=== PATIENT | male | born 1935 | race Caucasian/White ===

== ENCOUNTER 2021-07-14 11:33 | Emergency (ER) | payer OTHER, MEDICARE ==
[2021-07-14] MEDS ORDERED: Albuterol 200 PUFF (6.7GM INHALER) ONE (12:27)
== END 2021-07-14 12:46 | disposition home or self-care (01) ==
LOC: ERS 11:33
DX: J20.9 Acute bronchitis, unspecified (principal); D64.9 Anemia, unspecified; I10 Essential (primary) hypertension; F17.210 Nicotine dependence, cigarettes, uncomplicated

== ENCOUNTER 2021-08-03 16:55 | Emergency (ER) | payer OTHER, MEDICARE ==
[2021-08-03] MEDS ORDERED: Dexamethasone 10 MG/ML VIAL ONE (23:01)
== END 2021-08-03 23:08 | disposition home or self-care (01) ==
LOC: ERS 16:55
DX: M50.30 Other cervical disc degeneration, unspecified cervical region (principal); D64.9 Anemia, unspecified; I10 Essential (primary) hypertension; Z87.891 Personal history of nicotine dependence; Z79.899 Other long term (current) drug therapy
CPT/HCPCS: 99283; J1100

== ENCOUNTER 2021-08-21 11:12 | Observation (INO) | payer MEDICARE, OTHER ==
[2021-08-21] MEDS ORDERED: Proparacaine 0.5% Opth 15 ML BOT ONE (13:20)
[2021-08-21 13:42] LABS: Hemoglobin 15.5 g/dL (14.0-18.0); Mean Corpuscular Volume 93.7 fL (78.0-98.0); RBC Distribution Width 18.2 % (11.5-14.5); Red Blood Cell (RBC) Count 5.33 mill/uL (4.70-6.10); White Blood Cell (WBC) Count 15.4 thou/uL (4.8-10.8)
[2021-08-21 13:43] LABS: #Basophils 0.1 thou/uL (0.0-0.2); #Eosinphils 0.1 thou/uL (0.0-0.7); #Lymphocytes 1.2 thou/uL (1.20-3.40); #Monocytes 1.5 thou/uL (0.11-0.59); #Neutrophils 12.6 thou/uL (1.40-6.50); %Basophils 0.4 % (0.0-1.0); %Eosinophils 0.6 % (0.0-10.0); %Lymphocytes 7.5 % (21.0-51.0); %Monocytes 9.4 % (0.0-10.0)
[2021-08-21 13:50] LABS: Anisocytosis SLIGHT = 6-15 cells (100X) (0-5/hpf); Large Platelets SLIGHT; MDiff Complete? YES; Mean Platelet Volume 9.8 fL (7.4-10.4); Ovalocytes SLIGHT = 2-5 cells (100X) (0-1/hpf); Platelet Count 84 thou/uL (130-400); Platelet Morphology Comment Appears Decreased; Polychromasia SLIGHT = 2-3 cells (100X) (0-2/hpf)
[2021-08-21 14:01] LABS: ALT (SGPT) 24 U/L (8-55); AST (SGOT) 24 U/L (5-34); Albumin 4.4 g/dL (3.4-4.8); Alkaline Phosphatase 107 U/L (40-110); Anion Gap 14 mmol/L (10-20); BUN (Urea Nitrogen) 17 mg/dL (8.4-25.7); Bilirubin, Total 0.7 mg/dL (0.2-1.2); Calc. Creatinine Clearance 0 mL/min (70-130); Calcium 9.3 mg/dL (7.8-10.44); Carbon Dioxide 28 mmol/L (23-31); Chloride 106 mmol/L (98-107); Globulin 3.2 g/dL (2.4-3.5); Glucose 98 mg/dL (83-110); Potassium 4.4 mmol/L (3.5-5.1); Protein, Total 7.6 g/dL (5.8-8.1); Sodium 144 mmol/L (136-145)
[2021-08-21 14:52] LABS: Thyroid Stimulating Hormone 0.7722 uIU/mL (0.35-4.94)
[2021-08-21] MEDS ORDERED: Aspirin Chewable 81 MG TAB ONE (15:19)
[2021-08-21 16:10] LABS: Free T4 (Free Thyroxine) 0.94 ng/dL (0.70-1.48)
[2021-08-21] MEDS ORDERED: hydrALAZINE 20 MG/ML VIAL SLOW IVP PRN (17:31)
[2021-08-21] MEDS ORDERED: Ondansetron ODT 4 MG TAB PO PRN (17:35)
[2021-08-21] MEDS ORDERED: Ondansetron PF 4 MG/2 ML Vial IVP PRN (17:35)
[2021-08-21] MEDS ORDERED: Calcium Carbonate 500 MG ChewTAB PO PRN (17:35)
[2021-08-21] MEDS ORDERED: Senokot S 8.6-50 MG TAB PO PRN (17:35)
[2021-08-21] MEDS ORDERED: Electrolyte Replacement Protocol 1 EACH FS SCH (17:45)
[2021-08-21] MEDS ORDERED: Electrolyte Replacement Protocol FS PRN (18:00)
[2021-08-21 18:17] VITALS: BMI 25.3
[2021-08-21 20:33] LABS: Bacteria/HPF None Seen HPF (None Seen); Bilirubin Negative (Negative); Blood, Urine Negative (Negative); Clarity Clear (Clear); Glucose, Urine (Dipstick) 70 mg/dL (Negative); Ketone, Urine Negative (Negative); Leukocyte Negative Leu/uL (Negative); Mucous/LPF Rare LPF (<2+); Nitrite Negative (Negative); Protein, Urine (Dipstick) 20 mg/dL (Neg-Trace); RBC/HPF 0-3 HPF (0-3); Specific Gravity, Urine 1.034 (1.002-1.036); Squamous Epithelial None Seen HPF (0-3); Urobilinogen Normal mg/dL (Less than 2); WBC/HPF 0-3 HPF (0-3); pH, Urine 5.5 (5.0-9.0)
[2021-08-21 20:34] LABS: Urine Culture Reflex No No
[2021-08-21] MEDS ORDERED: Atorvastatin Calcium 40 MG TAB PO SCH (21:00)
[2021-08-21] MEDS ORDERED: Famotidine 20 MG TAB PO SCH (21:00)
[2021-08-21] MEDS: Artificial Tear Sol 15 ML BOT EA EYE SCH (21:34)
[2021-08-21] MEDS: Acetaminophen 325 MG TAB PO PRN (21:34)
[2021-08-22] MEDS ORDERED: HYDROcodone/Acetaminophen 5/325 mg Tablet PO SCH (01:30)
[2021-08-22 05:09] LABS: PTT 34.5 sec (22.9-36.1); Prothrombin Time 13.6 sec (12.0-14.7)
[2021-08-22 05:26] LABS: Phosphorus 2.7 mg/dL (2.3-4.7)
[2021-08-22 05:29] LABS: Anion Gap 9 mmol/L (10-20); BUN (Urea Nitrogen) 19 mg/dL (8.4-25.7); Calc. Creatinine Clearance 67 mL/min (70-130); Calcium 8.4 mg/dL (7.8-10.44); Carbon Dioxide 27 mmol/L (23-31); Cardiac Risk 4.5 (Less than 4.5); Chloride 109 mmol/L (98-107); Cholesterol 179 mg/dl (< 200 Desired); Glucose 125 mg/dL (83-110); HDL Cholesterol 40 mg/dL (>60 Neg Risk); LDL Cholesterol, Calculated 104 mg/dL; Magnesium 1.9 mg/dL (1.6-2.6); Potassium 3.7 mmol/L (3.5-5.1); Sodium 141 mmol/L (136-145); Triglycerides 175 mg/dL (Less than 150)
[2021-08-22] MEDS: Acetaminophen 325 MG TAB PO PRN ×2 (06:07→13:18)
[2021-08-22 07:51] LABS: #Basophils 0.1 thou/uL (0.0-0.2); #Eosinphils 0.1 thou/uL (0.0-0.7); #Lymphocytes 1.2 thou/uL (1.20-3.40); #Monocytes 1.4 thou/uL (0.11-0.59); #Neutrophils 9.7 thou/uL (1.40-6.50); %Basophils 0.6 % (0.0-1.0); %Eosinophils 1.1 % (0.0-10.0); %Lymphocytes 9.5 % (21.0-51.0); %Monocytes 11.4 % (0.0-10.0); %Neutrophils 77.4 % (42.0-75.0); Band 6 % (5-11); Hemoglobin 13.7 g/dL (14.0-18.0); Large Platelets MODERATE; Lymphocytes 12 % (21-51); MDiff Complete? YES; Mean Corpuscular Hemoglobin 30.1 pg (27.0-31.0); Mean Corpuscular Volume 94.2 fL (78.0-98.0); Mean Platelet Volume 12.8 fL (7.4-10.4); Monocytes 8 % (0-10); Neutrophil 73 % (42-75); Platelet Count 71 thou/uL (130-400); Platelet Morphology Comment Appears Decreased; Polychromasia SLIGHT = 2-3 cells (100X) (0-2/hpf); RBC Distribution Width 18.3 % (11.5-14.5); Reactive Lymphocytes 1 % (0-10); Red Blood Cell (RBC) Count 4.56 mill/uL (4.70-6.10); White Blood Cell (WBC) Count 12.5 thou/uL (4.8-10.8)
[2021-08-22] MEDS ORDERED: Magnesium 2 GM/50 ML(in water) 2 GM in Premix Bag 1 BAG IVPB SCH (08:00)
[2021-08-22] MEDS ORDERED: Aspirin 81 mg Enteric Coated Tablet PO SCH (09:00)
[2021-08-22] MEDS: Polyethylene Glycol OPTH DROP 15 ML BOT EA EYE SCH ×2 (10:07→13:19)
[2021-08-22] MEDS: Artificial Tear Sol 15 ML BOT EA EYE SCH (10:09)
[2021-08-22 15:30] VITALS: BP 168/66; TEMP 97.7
== END 2021-08-22 16:15 | disposition home or self-care (01) ==
LOC: ERS 11:12 → ERHOLD 15:25 → NEURO 17:52
PROVIDERS: ADMIT Internal Medicine; ATTEND Emergency Medicine
DX: H53.2 Diplopia (principal); I12.9 Hypertensive chronic kidney disease with stage 1 through stage 4 chronic kidney disease, or unspecified chronic kidney disease; N18.2 Chronic kidney disease, stage 2 (mild); D69.6 Thrombocytopenia, unspecified; E78.5 Hyperlipidemia, unspecified; Z20.822 Contact with and (suspected) exposure to COVID-19; G30.9 Alzheimer's disease, unspecified; F02.80 Dementia in other diseases classified elsewhere, unspecified severity, without behavioral disturbance, psychotic disturbance, mood disturbance, and anxiety; D72.829 Elevated white blood cell count, unspecified; Z79.899 Other long term (current) drug therapy; Z86.718 Personal history of other venous thrombosis and embolism
CPT/HCPCS: 36415; 70450; 70551; 71045; 80048; 80053; 80061; 81001; 83735; 83880; 84100; 84439; 84443; 84484; 85025; 85610; 85652; 85730; 93005; 93306; 93880; 96374; G0378; J3475; U0003; U0005

== ENCOUNTER 2021-09-03 11:14 | Observation (INO) | payer MEDICARE, OTHER ==
[~2021-09-03 11:14] MED LIST: Iopamidol-370 76% 500 ML 1 ML ONE
[2021-09-03 11:50] LABS: #Basophils 0.1 thou/uL (0.0-0.2); #Eosinphils 0.1 thou/uL (0.0-0.7); #Lymphocytes 0.9 thou/uL (1.20-3.40); #Monocytes 1.1 thou/uL (0.11-0.59); #Neutrophils 6.3 thou/uL (1.40-6.50); %Basophils 0.6 % (0.0-1.0); %Eosinophils 1.5 % (0.0-10.0); %Lymphocytes 10.6 % (21.0-51.0); %Monocytes 13.4 % (0.0-10.0); %Neutrophils 73.9 % (42.0-75.0); Hemoglobin 13.1 g/dL (14.0-18.0); Mean Corpuscular HGB CONC 32.2 g/dL (32.0-36.0); Mean Corpuscular Volume 93.1 fL (78.0-98.0); Mean Platelet Volume 10.7 fL (7.4-10.4); Platelet Count 74 thou/uL (130-400); RBC Distribution Width 18.2 % (11.5-14.5); Red Blood Cell (RBC) Count 4.37 mill/uL (4.70-6.10); White Blood Cell (WBC) Count 8.5 thou/uL (4.8-10.8)
[2021-09-03 11:55] LABS: INR-International Normal Ratio 1.1; PTT 35.8 sec (22.9-36.1); Prothrombin Time 14.2 sec (12.0-14.7)
[2021-09-03 12:06] LABS: ALT (SGPT) 20 U/L (8-55); AST (SGOT) 17 U/L (5-34); Albumin 3.7 g/dL (3.4-4.8); Alkaline Phosphatase 87 U/L (40-110); Anion Gap 13 mmol/L (10-20); BUN (Urea Nitrogen) 15 mg/dL (8.4-25.7); Bilirubin, Total 0.6 mg/dL (0.2-1.2); Calc. Creatinine Clearance 0 mL/min (70-130); Calcium 8.8 mg/dL (7.8-10.44); Carbon Dioxide 25 mmol/L (23-31); Chloride 108 mmol/L (98-107); Globulin 2.4 g/dL (2.4-3.5); Glucose 158 mg/dL (83-110); Potassium 3.7 mmol/L (3.5-5.1); Protein, Total 6.1 g/dL (5.8-8.1); Sodium 142 mmol/L (136-145)
[2021-09-03 12:16] LABS: CKMB 4.3 ng/mL (0-6.6)
[2021-09-03 12:33] LABS: #Eosinphils 0.1 thou/uL (0.0-0.7); #Lymphocytes 0.9 thou/uL (1.20-3.40); #Neutrophils 6.5 thou/uL (1.40-6.50); %Basophils 0.3 % (0.0-1.0); %Eosinophils 1.4 % (0.0-10.0); %Lymphocytes 10.9 % (21.0-51.0); %Monocytes 11.7 % (0.0-10.0); %Neutrophils 75.7 % (42.0-75.0); Hemoglobin 12.5 g/dL (14.0-18.0); Mean Corpuscular HGB CONC 31.9 g/dL (32.0-36.0); Mean Corpuscular Hemoglobin 29.9 pg (27.0-31.0); Mean Corpuscular Volume 93.7 fL (78.0-98.0); Mean Platelet Volume 13.1 fL (7.4-10.4); Platelet Count 69 thou/uL (130-400); RBC Distribution Width 18.2 % (11.5-14.5); Red Blood Cell (RBC) Count 4.18 mill/uL (4.70-6.10); White Blood Cell (WBC) Count 8.6 thou/uL (4.8-10.8)
[2021-09-03] MEDS ORDERED: Aspirin Chewable 81 MG TAB ONE (13:02)
[2021-09-03 13:06] LABS: ALT (SGPT) 17 U/L (8-55); AST (SGOT) 18 U/L (5-34); Albumin 3.4 g/dL (3.4-4.8); Alkaline Phosphatase 83 U/L (40-110); Anion Gap 13 mmol/L (10-20); BUN (Urea Nitrogen) 14 mg/dL (8.4-25.7); Bilirubin, Total 0.6 mg/dL (0.2-1.2); Calc. Creatinine Clearance 0 mL/min (70-130); Calcium 8.4 mg/dL (7.8-10.44); Carbon Dioxide 26 mmol/L (23-31); Chloride 106 mmol/L (98-107); Globulin 2.3 g/dL (2.4-3.5); Glucose 157 mg/dL (83-110); Potassium 4.1 mmol/L (3.5-5.1); Protein, Total 5.7 g/dL (5.8-8.1); Sodium 141 mmol/L (136-145)
[2021-09-03] MEDS ORDERED: Bisacodyl 5 MG TAB PO PRN (14:25)
[2021-09-03] MEDS ORDERED: Ondansetron PF 4 MG/2 ML Vial IVP PRN (14:25)
[2021-09-03] MEDS ORDERED: Senokot S 8.6-50 MG TAB PO PRN (14:25)
[2021-09-03] MEDS ORDERED: Ondansetron ODT 4 MG TAB PO PRN (14:25)
[2021-09-03] MEDS ORDERED: Acetaminophen 325 MG TAB PO PRN (14:25)
[2021-09-03 16:50] LABS: Troponin I 0.027 ng/mL (< 0.028)
[2021-09-03 19:44] LABS: Troponin I 0.025 ng/mL (< 0.028)
[2021-09-03] MEDS ORDERED: Gabapentin 100 MG CAP PO SCH (21:00)
[2021-09-03] MEDS ORDERED: Atorvastatin Calcium 40 MG TAB PO SCH (21:00)
[2021-09-03 23:17] VITALS: BMI 23.0
[2021-09-03] MEDS ORDERED: Betamethasone 0.1% Cream 45 GM TUBE TOP SCH (23:30)
[2021-09-03] MEDS ORDERED: Thiamine 100 MG TAB PO SCH (23:30)
[2021-09-03] MEDS ORDERED: Amlodipine 10 MG TAB PO SCH (23:30)
[2021-09-03] MEDS ORDERED: Cyanocobalamin (Vitamin B-12) 1,000 MCG TAB PO SCH (23:30)
[2021-09-03] MEDS ORDERED: Donepezil HCl 10 MG TAB PO SCH (23:30)
[2021-09-03] MEDS ORDERED: Ferrous Sulfate 325 MG TAB PO SCH (23:30)
[2021-09-03] MEDS ORDERED: Folic Acid 1 MG TAB PO SCH (23:30)
[2021-09-03] MEDS ORDERED: Magnesium Oxide 400 MG TAB PO SCH (23:30)
[2021-09-03] MEDS ORDERED: Diclofenac 1% 100 GM GEL TP SCH (23:30)
[2021-09-03] MEDS ORDERED: Loratadine 10 MG TAB PO SCH (23:30)
[2021-09-04 05:24] LABS: #Basophils 0.1 thou/uL (0.0-0.2); #Eosinphils 0.3 thou/uL (0.0-0.7); #Lymphocytes 0.9 thou/uL (1.20-3.40); #Monocytes 1.1 thou/uL (0.11-0.59); #Neutrophils 6.3 thou/uL (1.40-6.50); %Basophils 0.7 % (0.0-1.0); %Eosinophils 3.5 % (0.0-10.0); %Lymphocytes 10.2 % (21.0-51.0); %Monocytes 12.8 % (0.0-10.0); %Neutrophils 72.7 % (42.0-75.0); Hemoglobin 12.8 g/dL (14.0-18.0); Mean Corpuscular HGB CONC 32.7 g/dL (32.0-36.0); Mean Corpuscular Hemoglobin 30.4 pg (27.0-31.0); Mean Corpuscular Volume 92.7 fL (78.0-98.0); Mean Platelet Volume 13.2 fL (7.4-10.4); Platelet Count 64 thou/uL (130-400); RBC Distribution Width 18.1 % (11.5-14.5); Red Blood Cell (RBC) Count 4.22 mill/uL (4.70-6.10); White Blood Cell (WBC) Count 8.7 thou/uL (4.8-10.8)
[2021-09-04 05:45] LABS: ALT (SGPT) 17 U/L (8-55); AST (SGOT) 15 U/L (5-34); Albumin 3.3 g/dL (3.4-4.8); Alkaline Phosphatase 75 U/L (40-110); Anion Gap 11 mmol/L (10-20); BUN (Urea Nitrogen) 11 mg/dL (8.4-25.7); Bilirubin, Total 0.6 mg/dL (0.2-1.2); Calc. Creatinine Clearance 65 mL/min (70-130); Calcium 8.6 mg/dL (7.8-10.44); Carbon Dioxide 24 mmol/L (23-31); Chloride 106 mmol/L (98-107); Globulin 2.5 g/dL (2.4-3.5); Glucose 107 mg/dL (83-110); Protein, Total 5.8 g/dL (5.8-8.1); Sodium 137 mmol/L (136-145)
[2021-09-04] MEDS ORDERED: Donepezil HCl 10 MG TAB PO SCH (09:00)
[2021-09-04] MEDS ORDERED: Aspirin 81 mg Enteric Coated Tablet PO SCH ×2 (09:00)
[2021-09-04] MEDS ORDERED: Ferrous Sulfate 325 MG TAB PO SCH (09:00)
[2021-09-04] MEDS ORDERED: Magnesium Oxide 400 MG TAB PO SCH (09:00)
[2021-09-04] MEDS ORDERED: Clopidogrel Bisulfate 75 MG TAB PO SCH (09:00)
[2021-09-04] MEDS ORDERED: SYSTANE GEL OPHTH DROPS 10 ML EA EYE PRN (10:31)
[2021-09-04 12:50] VITALS: BP 125/68; TEMP 97.3
[2021-09-04] MEDS ORDERED: Diclofenac 1% 100 GM GEL TP SCH (21:00)
== END 2021-09-04 16:02 | disposition home or self-care (01) ==
LOC: ERS 11:14 → SUATTDRO 11:14 → INTOOBSV 13:37 → ERHOLD 13:37 → NEURO 19:45
PROVIDERS: ADMIT Internal Medicine; ATTEND Internal Medicine
DX: R53.1 Weakness (principal); R41.82 Altered mental status, unspecified; R47.81 Slurred speech; I10 Essential (primary) hypertension; E78.5 Hyperlipidemia, unspecified; G30.9 Alzheimer's disease, unspecified; F02.80 Dementia in other diseases classified elsewhere, unspecified severity, without behavioral disturbance, psychotic disturbance, mood disturbance, and anxiety; D64.9 Anemia, unspecified; D69.6 Thrombocytopenia, unspecified; K21.9 Gastro-esophageal reflux disease without esophagitis; M19.011 Primary osteoarthritis, right shoulder; E89.0 Postprocedural hypothyroidism; I65.23 Occlusion and stenosis of bilateral carotid arteries; Z85.46 Personal history of malignant neoplasm of prostate; Z85.850 Personal history of malignant neoplasm of thyroid; Z86.73 Personal history of transient ischemic attack (TIA), and cerebral infarction without residual deficits; Z87.891 Personal history of nicotine dependence; Z79.82 Long term (current) use of aspirin; Z79.899 Other long term (current) drug therapy; Z20.822 Contact with and (suspected) exposure to COVID-19
CPT/HCPCS: 36415; 70450; 70496; 70498; 70551; 80053; 82553; 84484; 85025; 85610; 85730; 95712; 95819; 95957; 99285; G0378; Q9967; U0003; U0005

== ENCOUNTER 2021-09-22 10:37 | Emergency (ER) | payer MEDICARE, OTHER ==
[2021-09-22] MEDS ORDERED: Ketorolac Tromethamine 30 MG/ML VIAL ONE (11:07)
== END 2021-09-22 14:24 | disposition home or self-care (01) ==
LOC: ERS 10:37
DX: S91.331A Puncture wound without foreign body, right foot, initial encounter (principal); I10 Essential (primary) hypertension; W22.8XXA Striking against or struck by other objects, initial encounter
CPT/HCPCS: 96374; J1885

== ENCOUNTER 2021-10-06 07:49 | Emergency (ER) | payer OTHER ==
[2021-10-06 08:42] LABS: #Basophils 0.1 thou/uL (0.0-0.2); #Eosinphils 0.2 thou/uL (0.0-0.7); #Lymphocytes 1.4 thou/uL (1.20-3.40); #Monocytes 1.2 thou/uL (0.11-0.59); %Basophils 0.6 % (0.0-1.0); %Eosinophils 2.2 % (0.0-10.0); %Lymphocytes 14.2 % (21.0-51.0); %Monocytes 11.9 % (0.0-10.0); %Neutrophils 70.9 % (42.0-75.0); Hemoglobin 12.4 g/dL (14.0-18.0); Mean Corpuscular HGB CONC 30.7 g/dL (32.0-36.0); Mean Corpuscular Hemoglobin 28.6 pg (27.0-31.0); Mean Platelet Volume 11.8 fL (7.4-10.4); Platelet Count 72 thou/uL (130-400); RBC Distribution Width 19.1 % (11.5-14.5); Red Blood Cell (RBC) Count 4.33 mill/uL (4.70-6.10); White Blood Cell (WBC) Count 9.9 thou/uL (4.8-10.8)
[2021-10-06 09:00] LABS: ALT (SGPT) 15 U/L (8-55); AST (SGOT) 18 U/L (5-34); Albumin 3.6 g/dL (3.4-4.8); Alkaline Phosphatase 89 U/L (40-110); Anion Gap 15 mmol/L (10-20); BUN (Urea Nitrogen) 23 mg/dL (8.4-25.7); Bilirubin, Total 0.4 mg/dL (0.2-1.2); CK (CPK) 145 U/L (30-200); Calc. Creatinine Clearance 0 mL/min (70-130); Calcium 8.9 mg/dL (7.8-10.44); Carbon Dioxide 24 mmol/L (23-31); Chloride 105 mmol/L (98-107); Estimated GFR 79; Glucose 116 mg/dL (83-110); Magnesium 2.2 mg/dL (1.6-2.6); Potassium 4.2 mmol/L (3.5-5.1); Protein, Total 6.6 g/dL (5.8-8.1); Sodium 140 mmol/L (136-145)
== END 2021-10-06 09:45 | disposition home or self-care (01) ==
LOC: ERS 07:49
DX: M71.22 Synovial cyst of popliteal space [Baker], left knee (principal); R25.2 Cramp and spasm; I10 Essential (primary) hypertension
CPT/HCPCS: 80053; 82550; 83735; 85025; 93005

== ENCOUNTER 2021-11-07 13:24 | Emergency (ER) | payer OTHER | END 2021-11-07 14:42 | disposition left against medical advice (07) | LOC: ERS 13:24 | DX: Z53.21 Procedure and treatment not carried out due to patient leaving prior to being seen by health care provider (principal) ==

== ENCOUNTER 2022-10-18 12:26 | Emergency (ER) | payer MEDICARE, OTHER ==
[2022-10-18 14:20] LABS: #Eosinphils 0.2 thou/uL (0.0-0.7); #Monocytes 1.4 thou/uL (0.11-0.59); #Neutrophils 6.5 thou/uL (1.40-6.50); %Basophils 0.4 % (0.0-1.0); %Eosinophils 2.1 % (0.0-10.0); %Lymphocytes 18.3 % (21.0-51.0); %Monocytes 14.2 % (0.0-10.0); %Neutrophils 64.7 % (42.0-75.0); Hemoglobin 14.9 g/dL (14.0-18.0); Mean Corpuscular HGB CONC 32.4 g/dL (32.0-36.0); Mean Corpuscular Hemoglobin 29.2 pg (27.0-31.0); Mean Corpuscular Volume 90.2 fl (78.0-98.0); RBC Distribution Width 18.2 % (11.5-14.5); White Blood Cell (WBC) Count 10.1 10x3/uL (4.8-10.8)
[2022-10-18 14:28] LABS: Platelet Count 71 10x3/uL (130-400)
[2022-10-18 14:38] LABS: ALT (SGPT) 17 U/L (8-55); AST (SGOT) 18 U/L (5-34); Albumin 4.3 g/dL (3.4-4.8); Alkaline Phosphatase 77 U/L (40-110); Anion Gap 10 mmol/L (10-20); BUN (Urea Nitrogen) 15 mg/dL (8.4-25.7); Bilirubin, Total 0.6 mg/dL (0.2-1.2); Calc. Creatinine Clearance 0 mL/min (70-130); Calcium 9.2 mg/dL (7.8-10.44); Carbon Dioxide 31 mmol/L (23-31); Chloride 105 mmol/L (98-107); Estimated GFR 84; Globulin 2.9 g/dL (2.4-3.5); Glucose 80 mg/dL (83-110); Lipase 14 U/L (8-78); Potassium 4.3 mmol/L (3.5-5.1); Protein, Total 7.2 g/dL (5.8-8.1); Sodium 142 mmol/L (136-145)
[2022-10-18 15:00] LABS: CKMB 2.6 ng/mL (0-6.6)
[2022-10-18 15:12] LABS: Bacteria/HPF None Seen HPF (None Seen); Bilirubin Negative (Negative); Blood, Urine Negative (Negative); CAUTI Indications for Culture Pelvic or flank pain; Clarity Clear (Clear); Glucose, Urine (Dipstick) Normal (Negative); Ketone, Urine Negative (Negative); Leukocyte Negative Leu/uL (Negative); Nitrite Negative (Negative); Protein, Urine (Dipstick) Negative (Neg-Trace); RBC/HPF 0-3 HPF (0-3); Specific Gravity, Urine 1.022 (1.002-1.036); Squamous Epithelial 0-3 HPF (0-3); Urobilinogen Normal mg/dL (Less than 2); WBC/HPF 0-3 HPF (0-3)
[2022-10-18 15:26] LABS: Urine Culture Reflex No No
[2022-10-18] MEDS ORDERED: Morphine 4 MG/ML VIAL ONE (17:32)
[2022-10-18] MEDS ORDERED: Aspirin 325 MG TAB ONE (17:32)
[2022-10-18] MEDS ORDERED: Ondansetron PF 4 MG/2 ML Vial ONE (17:32)
== END 2022-10-18 19:17 | disposition left against medical advice (07) ==
LOC: ERS 12:26
DX: R07.9 Chest pain, unspecified (principal); R77.8 Other specified abnormalities of plasma proteins; I10 Essential (primary) hypertension
CPT/HCPCS: 71045; 74176; 80053; 81001; 82553; 83690; 83880; 84484; 85025; 93005; 96374; 96375; J2270; J2405

== ENCOUNTER 2024-03-12 09:30 | Emergency (ER) | payer MEDICARE, OTHER ==
[2024-03-12 09:56] LABS: Hematocrit 43.5 % (42.0-52.0); Hemoglobin 13.8 g/dL (14.0-18.0); Mean Corpuscular HGB CONC 31.7 g/dL (32.0-36.0); Mean Corpuscular Hemoglobin 28.4 pg (27.0-31.0); Mean Corpuscular Volume 89.5 fL (78.0-98.0); Platelet Count 107 10x3/uL (130-400); RBC Distribution Width 19.4 % (11.5-14.5); Red Blood Cell (RBC) Count 4.86 mill/uL (4.70-6.10)
[2024-03-12 09:58] LABS: Bacteria/HPF None Seen HPF (None Seen); Bilirubin Negative (Negative); Blood, Urine 1+ (Negative); CAUTI Indications for Culture Dysuria,urgency,freq; Clarity Clear (Clear); Glucose, Urine (Dipstick) Normal (Negative); Ketone, Urine Negative (Negative); Leukocyte Negative Leu/uL (Negative); Nitrite Negative (Negative); Protein, Urine (Dipstick) Negative (Neg-Trace); RBC/HPF 21-50 HPF (0-3); Specific Gravity, Urine 1.022 (1.002-1.036); Squamous Epithelial None Seen HPF (0-3); Urobilinogen Normal mg/dL (Less than 2); WBC/HPF 0-3 HPF (0-3); pH, Urine 6.5 (5.0-9.0)
[2024-03-12 10:01] LABS: Urine Culture Reflex No No
[2024-03-12 10:22] LABS: ALT (SGPT) 22 U/L (8-55); AST (SGOT) 23 U/L (5-34); Albumin 3.9 g/dL (3.4-4.8); Alkaline Phosphatase 95 U/L (40-110); Anion Gap 11 mmol/L (10-20); BUN (Urea Nitrogen) 19 mg/dL (8.4-25.7); Bilirubin, Total 0.6 mg/dL (0.2-1.2); Calc. Creatinine Clearance 0 mL/min (70-130); Calcium 9.3 mg/dL (7.8-10.44); Carbon Dioxide 29 mmol/L (23-31); Chloride 108 mmol/L (98-107); Estimated GFR 79; Globulin 3.7 g/dL (2.4-3.5); Glucose 114 mg/dL (83-110); Potassium 4.2 mmol/L (3.5-5.1); Protein, Total 7.6 g/dL (5.8-8.1); Sodium 144 mmol/L (136-145)
[2024-03-12 10:31] LABS: Band 5 % (5-11); Elliptocytes SLIGHT = 2-5 cells HPF (0-1); Eosinophils 1 % (0-10); Lymphocytes 15 % (21-51); Monocytes 9 % (0-10); Neutrophil 64 % (42-75); Ovalocytes SLIGHT = 2-5 cells HPF (0-1); Platelet Adequacy Comment Platelets Decreased; Polychromasia SLIGHT = 2-3 cells HPF (0-2); Reactive Lymphocytes 5 % (0-10)
[2024-03-12] MEDS ORDERED: Iopamidol-370 76% 500 ML MDV (1 ML CHARGE) ONE (10:49)
== END 2024-03-12 12:57 | disposition home or self-care (01) ==
LOC: ERS 09:30
DX: N40.1 Benign prostatic hyperplasia with lower urinary tract symptoms (principal); R33.8 Other retention of urine; I10 Essential (primary) hypertension
CPT/HCPCS: 36415; 51702; 51798; 74177; 80053; 81001; 83605; 85025; 87086; Q9967

== ENCOUNTER 2024-04-18 07:04 | Emergency (ER) | payer MEDICARE, OTHER ==
[2024-04-18 08:02] LABS: Bacteria/HPF 2+ HPF (None Seen); Bilirubin Negative (Negative); Blood, Urine 2+ (Negative); CAUTI Indications for Culture Pelvic or flank pain; Calcium Oxalate Crystals 3+ HPF (None Seen); Clarity Extra Turbid (Clear); Glucose, Urine (Dipstick) Normal (Negative); Ketone, Urine Negative (Negative); Leukocyte 500 Leu/uL (Negative); Nitrite Negative (Negative); Protein, Urine (Dipstick) 50 mg/dL (Neg-Trace); RBC/HPF 21-50 HPF (0-3); Specific Gravity, Urine 1.014 (1.002-1.036); Squamous Epithelial 0-3 HPF (0-3); Urobilinogen Normal mg/dL (Less than 2); WBC/HPF Greater than 50 HPF (0-3)
[2024-04-18 08:06] LABS: Urine Culture Reflex Yes Yes
[2024-04-18] MEDS ORDERED: Ciprofloxacin 500 MG TAB ONE (08:22)
== END 2024-04-18 08:40 | disposition home or self-care (01) ==
LOC: ERS 07:04
DX: T83.518A Infection and inflammatory reaction due to other urinary catheter, initial encounter (principal); T83.091A Other mechanical complication of indwelling urethral catheter, initial encounter; N39.0 Urinary tract infection, site not specified; I10 Essential (primary) hypertension
CPT/HCPCS: 81001; 87077; 87086; 99283

== ENCOUNTER 2024-10-26 21:12 | Emergency (ER) | payer MEDICARE ==
[2024-10-26 22:42] LABS: Bacteria/HPF 2+ HPF (None Seen); CAUTI Indications for Culture Urological Procedure; Glucose, Urine (Dipstick) Normal (Negative); Leukocyte 500 Leu/uL (Negative); Protein, Urine (Dipstick) 100 mg/dL (Neg-Trace); RBC/HPF 21-50 HPF (0-3); Specific Gravity, Urine 1.013 (1.002-1.036); WBC/HPF Greater than 50 HPF (0-3)
[2024-10-26 22:43] LABS: Urine Culture Reflex Yes Yes
== END 2024-10-26 23:58 | disposition home or self-care (01) ==
LOC: ERS 21:12
DX: T83.018A Breakdown (mechanical) of other urinary catheter, initial encounter (principal); T83.518A Infection and inflammatory reaction due to other urinary catheter, initial encounter; I10 Essential (primary) hypertension
CPT/HCPCS: 51705; 81001; 87077; 87086; 87186

== ENCOUNTER 2024-11-21 02:39 | Emergency (ER) | payer MEDICARE, OTHER ==
[2024-11-21 04:30] LABS: Bacteria/HPF 2+ HPF (None Seen); CAUTI Indications for Culture Dysuria,urgency,freq; Glucose, Urine (Dipstick) Normal (Negative); Leukocyte 500 Leu/uL (Negative); Protein, Urine (Dipstick) 20 mg/dL (Neg-Trace); RBC/HPF Greater than 50 HPF (0-3); Specific Gravity, Urine 1.008 (1.002-1.036); WBC/HPF Greater than 50 HPF (0-3)
[2024-11-21 04:33] LABS: Urine Culture Reflex Yes Yes
== END 2024-11-21 05:15 | disposition home or self-care (01) ==
LOC: ERS 02:39
DX: T83.098A Other mechanical complication of other urinary catheter, initial encounter (principal); N39.0 Urinary tract infection, site not specified; R33.9 Retention of urine, unspecified; I10 Essential (primary) hypertension; G30.9 Alzheimer's disease, unspecified; F02.80 Dementia in other diseases classified elsewhere, unspecified severity, without behavioral disturbance, psychotic disturbance, mood disturbance, and anxiety
CPT/HCPCS: 51702; 81001; 87077; 87086; 87186; 99283

== ENCOUNTER 2024-11-28 13:26 | Emergency (ER) | payer MEDICARE, OTHER | END 2024-11-28 16:18 | disposition left against medical advice (07) | LOC: ERS 13:26 | DX: Z53.21 Procedure and treatment not carried out due to patient leaving prior to being seen by health care provider (principal) ==

== ENCOUNTER 2024-12-20 21:30 | Emergency (ER) | payer OTHER | END 2024-12-20 23:21 | disposition home or self-care (01) | LOC: ERS 21:30 | DX: Z48.03 Encounter for change or removal of drains (principal); R33.9 Retention of urine, unspecified; I10 Essential (primary) hypertension | CPT/HCPCS: 51705; 51798 ==